=== PATIENT | male | born 1990 | race Caucasian/White ===

== ENCOUNTER 2017-10-09 11:09 | Outpatient (CLI) | payer BC, SELFPAY ==
[2017-10-09 13:06] LABS: ALT 24 U/L (12-78); AST 12 U/L (15-37); Albumin 4.1 g/dL (3.4-5.0); Alkaline Phosphatase 85 U/L (46-116); BUN 9 mg/dL (7-18); Bilirubin, Total 1.5 mg/dL (0.2-1.0); CREATININE 0.88 mg/dL (0.70-1.30); Calcium 8.4 mg/dL (8.5-10.1); Chloride 107 mmol/L (98-107); Cholesterol 107 mg/dL (50-200); Glucose 86 mg/dL (70-100); HDL Cholesterol 32 mg/dL (40-60); LDL CHOLESTEROL 69 mg/dL (<100); Potassium 4.2 mmol/L (3.5-5.1); Sodium 141 mmol/L (136-145); Total Protein 6.6 g/dL (6.4-8.2); Triglyceride 66 mg/dL (30-150)
== END 2017-10-09 11:10 ==
PROVIDERS: PCP Nurse Practitioner Family; Visit Provider Nurse Practitioner Family
DX: F64.9 Gender identity disorder, unspecified (principal)
CPT/HCPCS: 36415; 80053; 80061; 83721